=== PATIENT | female | born 1985 | race Two or more races ===

== ENCOUNTER 2019-09-20 21:00 | Emergency (ER) | payer BC, OTHER ==
[2019-09-20] MEDS ORDERED: SODIUM CHLORIDE 1,000 ML IV STA ×2 (21:04→22:56)
--- NOTE | 2019-09-20 21:04 | PDOC ---
History of Present Illness - General Chief Complaint: Overdose Stated Complaint: OVERDOSE Time Seen by Provider: 09/20/19 21:03 History Source: Patient, EMS Exam Limitations: No Limitations, Clinical Condition - History of Present Illness Initial Comments: 33 year old female with no PMH brought to ED via EMS for ingestion of multiple substances resulting in respiratory collapse. Per EMS pt was found down in the driveway by her sister after ingesting alcohol, oxycodone, and valium. PD neighbor was called, and reported at the time pt was not breathing. EMS arrived and started to bag the patient, gave Naloxone 8 mg intranasally and 2 mg IV with return of consiousness. Pt is now awake and alert, oriented to person and place, reported she took the medications for her chronic shoulder pain and was not trying to hurt herself. Past History - Past Medical History Allergies/Adverse Reactions: Allergies Allergy/AdvReac Type Severity Reaction Status Date / Time No Known Allergies Allergy Verified 09/20/19 21:10 Review of Systems - Review of Systems Able to Perform ROS?: Yes Comments:: ROS General: denied fever, chills, generalized weakness. HEENT: denied sore throat, rhinorrhea, ear pain. Cardiovascular: denied chest pain, palpitations, syncope, diaphoresis. Respiratory: denied shortness of breath, cough, sputum production, hemoptysis. Gastrointestinal: denied abdominal pain, nausea, vomiting, diarrhea, constipation, blood in stool. Genitourinary: denied dysuria, increased urinary frequency, hematuria, urinary incontinence, flank pain. Back: denied back pain. Musculoskeletal: denied joint pain, muscle pain, joint swelling. Neurological: denied headache, dizziness, numbness, tingling, weakness. Integumentary: denied rash, laceration, abrasion. Hematologic/Lymphatic: denied bruising or bleeding. PE Constitutional: intoxicated. Well-nourished, Well-developed, appearing stated age. HEENT: head is normocephalic, atraumatic. EOMI. PERRLA. no posterior pharyngeal erythema. Neck: supple. Full ROM. Cardiovascular: regular heart rhythm. no murmurs. no pericardial friction rub. Respiratory: clear to auscultation bilaterally. no crackles, rhonchi or wheezing. no stridor. no respiratory distress. Gastrointestinal: soft, nontender. normal bowel sounds. no rebound, guarding, masses. Extremities: peripheral pulses intact. no lower extremity edema. Neurological: CN 2-12 grossly intact. moves all four extremities. Psych: awake, alert, oriented x3. follows commands. answers questions appropriately. ED Treatment Course - LABORATORY CBC & Chemistry Diagram: 09/20/19 21:27 09/20/19 21:27 Medical Decision Making - Medical Decision Making 33 year old female with above PMH BIBA to ED for respiratory distress after ingestion of opiates, valium, alcohol tonight. Pt denied suicide intention. Total of 10 mg Naloxone given by EMS [employer]. Initial Vital Signs Temp Pulse Resp BP Pulse Ox 98.1 F 92 H 11 120/83 98 09/20/19 21:04 09/20/19 21:04 09/20/19 21:04 09/20/19 21:04 09/20/19 21:04 Afebrile. No tachycardia. No tachypnea. No hypotension. No hypoxia on room air. Labs ordered: CBC, CMP, Acetaminophen, salicyclate, alcohol, serum , UA , urine drug screen Imaging ordered: none Medications ordered: normal saline bolus 1000 cc once EKG performed at 2153: rate 104, regular rhythm, normal axis, normal intervals, QTC 476, no acute ST changes. 09/20/19 21:39 09/20/19 21:27 VBG pH 7.33 POC VBG pCO2 47.6 POC VBG pO2 < 49 H VBG HCO3 24.4 VBG O2 Sat ([place]) 37.0 L VBG Base Excess -1.5 No CO2 retention, no acidosis. 09/20/19 22:12 ETOH 170 Salicylate negative Acetaminophen negative CBC WBC 10.5 K/mm3 (4.0-10.0) H 09/20/19 21: RBC 4.88 M/mm3 (3.60-5.2) 09/20/19 21: Hgb 13.8 GM/dL (10.7-15.3) 09/20/19 21: Hct 41.2 % (32.4-45.2) 09/20/19 21:27 MCV 84.5 fl (80-96) 09/20/19 21: MCH 28.2 pg (25.7-33.7) 09/20/19 21: MCHC 33.4 g/dl (32.0-36.0) 09/20/19 21:27 RDW 13.3 % (11.6-15.6) 09/20/19 21:27 Plt Count 319 K/MM3 (134-434) 09/20/19 21:27 MPV 9.6 fl (7.5-11.1) 09/20/19 21:27 Absolute Neuts (auto) 5.0 K/mm3 (1.5-8.0) 09/20/19 21:27 Neutrophils % 47.4 % (42.8-82.8) 09/20/19 21: Lymphocytes % 41.9 % (8-40) H 09/20/19 21: Monocytes % 7.9 % (3.8-10.2) 09/20/19: Eosinophils % 2.4 % (0-4.5) 09/20/19 21: Basophils % 0.4 % (0-2.0) 09/20/19 21: Nucleated RBC % 0 % (0-0) 09/20/19 21:27 CMP Sodium 142 mmol/L (136-145) 09/20/19 21:27 Potassium 3.5 mmol/L (3.5-5.1) 09/20/19 21: Chloride 108 mmol/L (98-107) H 09/20/19 21:27 Carbon Dioxide 26 mmol/L (21-32) 09/20/19 21: Anion Gap 8 MMOL/L (8-16) 09/20/19 21:27 BUN 12.3 mg/dL (7-18) 09/20/19 21: Creatinine 0.9 mg/dL (0.55-1.3) 09/20/19 21:27 Est GFR (CKD-EPI)AfAm 98.06 09/20/19 21: Est GFR (CKD-EPI)NonAf 84.60 09/20/19 21: Random Glucose 97 mg/dL (74-106) 09/20/19 21: Calcium 9.4 mg/dL (8.5-10.1) 09/20/19 21:27 Total Bilirubin 0.2 mg/dL (0.2-1) 09/20/19 21:27 AST 18 U/L (15-37) 09/20/19 21:27 ALT 21 U/L (13-61) 09/20/19 21:27 Alkaline Phosphatase 75 U/L (45-117) 09/20/19 21:27 Total Protein 7.7 g/dl (6.4-8.2) 09/20/19 21:27 Albumin 3.9 g/dl (3.4-5.0) 09/20/19 21:27 Beta HCG, Quant < 1.0 mIU/ml 09/20/19 21:27 Pt vomiting. Medications ordered: zofran 4 mg IV once 09/20/19 22:52 Pt reported improvement of nausea/vomiting. Sleeping comfortably. 09/20/19 23:27 Pt appears less intoxicated, reported she had no suicidal intent, was drinking at home waiting for boyfriend to come home, but then he had to stay at work, and she didnt realized she drank too much to take her pain medication. When she began to feel off she called her brother to tell him that she thought she drank too much. 09/20/19 23:35 Urine Test Results Urine Color Yellow 09/20/19 22:30 Urine Appearance Clear 09/20/19 22:30 Urine pH 5.0 (5.0-8.0) 09/20/19 22:30 Ur Specific [place] 1.027 (1.010-1.035) 09/20/19 22:30 Urine Protein Negative (NEGATIVE) 09/20/19 22:30 Urine Glucose (UA) Negative (NEGATIVE) 09/20/19 22:30 Urine Ketones Trace (NEGATIVE) H 09/20/19 22:30 Urine Blood Negative (NEGATIVE) 09/20/19 22:30 Urine Nitrite Negative (NEGATIVE) 09/20/19 22:30 Urine Bilirubin Negative (NEGATIVE) 09/20/19 22:30 Ur Leukocyte Esterase Negative (NEGATIVE) 09/20/19 22:30 Negative for UTI. Trace ketones. Pt awake and alert, requesting discharge, oriented x3. Pt discharged with her mother and brother at bedside. They reported that the patient will stay with them overnight. 09/20/19 23:47 UDS positive for benzo and opiates. Discharge - Discharge Information Problems reviewed: Yes Clinical Impression/Diagnosis: ETOH abuse, Intoxication, Polypharmacy Condition: Improved Disposition: HOME - Admission No - Follow up/Referral Referrals: Franko Garrison [Primary Care Provider] - - Patient Discharge Instructions Patient Printed Discharge Instructions: DI for Alcohol Abuse, DI for Prescription Opioid Use Additional Instructions: Follow up with your primary care doctor within 3 days regarding your Emergency Room visit. Do not drink alcohol and take opioid medication or Valium at the same time. Only take pills that are prescribed to you. If you feel you are having trouble with substance abuse, please call our detox/ rehab facility. [email or web address] --Medically Managed Inpatient Detoxification ---Our 72 bed detoxification program provides physician supervised treatment and compassionate care for those suffering from withdrawal from alcohol, opiates , benzodiazepines and other drugs of abuse. Our multidisciplinary treatment team helps each patient to safely end their physical addition and learn skills to maintain recovery through group and individual counseling, 12 Step experiences, psychiatric treatment and individually designed discharge planning. [phone] ([phone]) or [phone] --Inpatient Rehabilitation ---Our 69 bed rehabilitation program provides evidenced based chemical dependency treatment to those in need of a structured / setting. We have gender-specific treatment units and our attending physicians are all psychiatrists who help those suffering from mental illness. We offer an eclectic approach including the philosophy and practices of CBT, MA and the 12 Steps. [phone] ([phone]) or [phone] Return to the Emergency Department for increasing pain, altered mental status, vomiting, chest pain, shortness of breath, lightheadedness, passing out, respiratory distress, or any other new, worsening or concerning symptoms. - Post Discharge Activity Work/Back to School Note: Back to Work
[2019-09-20 21:10] VITALS: TEMP 98.1; BMI 29.1
[2019-09-20] MEDS ORDERED: NALOXONE HCL 0.4 MG/ML VIAL ONE ×3 (21:11→21:12)
[2019-09-20 21:35] LABS: VENOUS PC02 47.6 mmHg (38-52); VENOUS PH 7.33 (7.31-7.41)
[2019-09-20 21:36] LABS: VENOUS PO2 < 49 mmHg (28-48)
[2019-09-20 21:38] LABS: BASO % 0.4 % (0-2.0); EOS % 2.4 % (0-4.5); HEMATOCRIT 41.2 % (32.4-45.2); HEMOGLOBIN 13.8 GM/dL (10.7-15.3); LYMPH % 41.9 % (8-40); MCH 28.2 pg (25.7-33.7); MCHC 33.4 g/dl (32.0-36.0); MEAN CELL VOLUME 84.5 fl (80-96); MEAN PLT VOLUME 9.6 fl (7.5-11.1); MONO % 7.9 % (3.8-10.2); NEUT % 47.4 % (42.8-82.8); PLATELET COUNT 319 K/MM3 (134-434); RBC 4.88 M/mm3 (3.60-5.2); RDW 13.3 % (11.6-15.6); WHITE BLOOD COUNT 10.5 K/mm3 (4.0-10.0)
--- NOTE | 2019-09-20 21:46 | PDOC ---
Attending Attestation - Resident Resident Name: Ny Shine - ED Attending Attestation I have performed the following: I have examined & evaluated the patient, The case was reviewed & discussed with the resident, I agree w/resident's findings & plan - HPI HPI: 09/20/19 21:44 Pt drank sangria and took some oxy pain meds for her right shoulder and she is intox/wasted. 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 She has a hx of asthma. No complaints at this time. - Physicial Exam PE: 09/20/19 21:45 Normal exam. Pt is intox. Pt has normal heart and lungs No flank pain; no rashes Ext no edema Able to follow commands. Agree with resident exam - Medical Decision Making 09/20/19 21:56 CBC and blood gas normal Alc level and chem pending. 09/20/19 22:50 Chem is normal alcohol is 170 09/21/19 00:30 UTOX positives for opiates and benzos. Pt is awake and alert and will be discharged home with mom and her brother.
[2019-09-20 22:13] LABS: ALBUMIN 3.9 g/dl (3.4-5.0); ALK PHOS 75 U/L (45-117); ANION GAP 8 MMOL/L (8-16); BILIRUBIN,TOTAL 0.2 mg/dL (0.2-1); BLOOD UREA NITROGEN 12.3 mg/dL (7-18); CALCIUM 9.4 mg/dL (8.5-10.1); CHLORIDE 108 mmol/L (98-107); CO2 26 mmol/L (21-32); CREATININE 0.9 mg/dL (0.55-1.3); GLUCOSE,RANDOM 97 mg/dL (74-106); POTASSIUM 3.5 mmol/L (3.5-5.1); SGOT/AST 18 U/L (15-37); SGPT/ALT 21 U/L (13-61); SODIUM 142 mmol/L (136-145); TOT PROT 7.7 g/dl (6.4-8.2)
[2019-09-20] MEDS ORDERED: ONDANSETRON 4 MG/2 ML VIAL IVPUSH ONE (22:20)
[2019-09-20] MEDS ORDERED: ONDANSETRON 4 MG/2 ML VIAL ONE (22:24)
[2019-09-20 23:32] LABS: URINE APPEARANCE CLEAR; URINE BILIRUBIN NEGATIVE (NEGATIVE); URINE COLOR YELLOW; URINE GLUCOSE (UA) NEGATIVE (NEGATIVE); URINE KETONE TRACE (NEGATIVE); URINE LEUK ESTERASE NEGATIVE (NEGATIVE); URINE NITRITE NEGATIVE (NEGATIVE); URINE PROTEIN NEGATIVE (NEGATIVE); URINE UROBILINOGEN 0.2 mg/dL (0.2-1.0)
[2019-09-20 23:40] LABS: COCAINE, UR NEGATIVE ng/ml (CUTOFF=300); PHENCYCLIDINE,URINE NEGATIVE ng/ml (CUTOFF=25); URINE AMPHETAMINES NEGATIVE ng/ml (CUTOFF=500); URINE BARBITURATES NEGATIVE ng/ml (CUTOFF=200)
[2019-09-20 23:41] LABS: METHADONE, UR NEGATIVE ng/ml (CUTOFF=300)
[2019-09-20 23:44] LABS: OPIATES, URI POSITIVE ng/ml (CUTOFF=300); URINE BENZODIAZEPINES POSITIVE ng/ml (CUTOFF=200)
[2019-09-21] VITALS: BP 117/68; PULSE 90
--- NOTE | 2019-09-21 10:50 | EKG ---
Test Reason : Blood Pressure : / mmHG Vent. Rate : 104 BPM Atrial Rate : 104 BPM P-R Int : 160 ms QRS Dur : 084 ms QT Int : 362 ms P-R-T Axes : 044 035 010 degrees QTc Int : 476 ms SINUS TACHYCARDIA POSSIBLE LEFT ATRIAL ENLARGEMENT BORDERLINE ECG NO PREVIOUS ECGS AVAILABLE Confirmed by ABDULAZIZ MORROW MD ([id number]) on 09/21/2019 10:50:19 AM Referred By: Confirmed By:ABDULAZIZ MORROW MD
== END 2019-09-20 23:59 | disposition home or self-care (01) ==
LOC: JER 21:00
PROC: 3E0337Z Introduction of Electrolytic and Water Balance Substance into Peripheral Vein, Percutaneous Approach (ICD-10-PCS; principal; 2019-09-20)
PROC: 3E033GC Introduction of Other Therapeutic Substance into Peripheral Vein, Percutaneous Approach (ICD-10-PCS; 2019-09-20)
DX: F10.120 Alcohol abuse with intoxication, uncomplicated (principal)
CPT/HCPCS: 36415; 80053; 80307; 81003; 82803; 84702; 85025; 93005; 93010; 99285-25; J7030